=== PATIENT | female | born 1960 | race Two or more races ===

== ENCOUNTER 2022-11-03 10:29 | Emergency (ER) | payer MEDICARE, SELFPAY ==
[2022-11-03 10:45] VITALS: BP 133/62; PULSE 99; RESP 18; TEMP 36.9; O2SAT 99
--- NOTE | 2022-11-03 10:48 | ED.NAVMDI ---
HPI - Nausea/Vomiting/Diarrhea General Chief complaint: Nausea/Vomiting/Diarrhea Stated complaint: Abdominal Pain/Nausea/ Vomiting Source: patient, family and RN notes reviewed History of Present Illness HPI Narrative: 61-year-old female presents to urgent care with us at side. Patient states last night she began vomiting and vomited 6 times. Patient reporting abdominal pain at that time and states that is improving. Patient reports a mild periumbilical pain intermittently this morning. Patient states she attempted drinking some tea this morning and became nauseous. Patient denies any fevers, chills, diarrhea, chest pain, or shortness of breath. Denies any sore throat or ear pain. Some parts of this dictation were generated by voice recognition software and may contain typographical and/or grammatical inaccuracies. Related Data Allergies Allergy/AdvReac Type Severity Reaction Status Date / Time No Known Allergies Allergy Verified 11/03/22 10:54 Review of Systems Review of Systems: Pertinent positives and pertinent negatives per HPI. PMFSH Comments At the time of my signature, I reviewed and agree with the nursing past medical, surgical, social, and family history. There is no relevant family history pertinent to the patient complaint. Exam Narrative: GENERAL: This is a well-nourished, well-developed patient, in no apparent distress. HEAD: normocephalic, atraumatic. EYES: PERRL. Sclera clear/white. Vision is grossly intact. EARS: External ears normal, auditory canals clear and without drainage, TMs normal without perforation. Hearing grossly intact. NOSE: External nose normal with no obvious nasal discharge, nares without redness, no rhinorrhea. THROAT: Mucous membranes moist, posterior pharynx clear. NECK: Neck supple, non-tender without lymphadenopathy, masses or thyromegaly. CARDIOVASCULAR: Regular rate and rhythm without murmurs, gallops, or rubs. RESPIRATORY: Clear to auscultation. Breath sounds equal bilaterally. No wheezes, rales, or rhonchi. GASTROINTESTINAL: Abdomen soft, non-tender, nondistended. Bowel sounds are active. No hepato-splenomegaly, or palpable masses. No guarding. SKIN: warm, intact with no suspicious lesions or rash, good texture and turgor. NEURO: awake, alert, and oriented to person, place and time. There were no obvious focal neurologic abnormalities. Course Course Level of Care: Express Care Visit Vital Signs Vital signs: Vital Signs Temperature 98.5 F 11/03/22 10:45 Pulse Rate 99 11/03/22 10:45 Respiratory Rate 18 11/03/22 10:45 Blood Pressure 133/62 11/03/22 10:45 Pulse Oximetry 99 11/03/22 10:45 Oxygen Delivery Room Air 11/03/22 10:45 Temperature 98.5 F 11/03/22 10:45 Pulse Rate 99 11/03/22 10:45 Respiratory Rate 18 11/03/22 10:45 Blood Pressure 133/62 11/03/22 10:45 Pulse Oximetry 99 11/03/22 10:45 Oxygen Delivery Room Air 11/03/22 10:45 Reviewed MDM - Nausea/Vomiting/Diarrhea MDM Narrative Medical decision making narrative: You've been diagnosed with a viral illness that would not require antibiotics at this time. Take the Zofran ODT at home as directed for nausea and get plenty of fluids. If you would like to eat food, you should follow the BRAT diet (bananas, rice, applesauce, and toast, or things of the like). If you develop any new or worsening symptoms, you should go to the emergency dept without hesitation. 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 Pt passed her PO challenge in clinic. Pt states she is ready to go home. Differential Diagnosis Differential diagnosis: Likely traveler's diarrhea, food poisoning and gastroenteritis Critical Care Time Critical Care Time Critical Care Time: No Discharge Plan Discharge Clinical Impression: Gastroenteritis Patient Disposition: Home, Self-Care Condition: Stable Instructions: Gastroenteritis (DC) Additional Instructions: You've been diagnosed with a vir
[2022-11-03] MEDS: ONDANSETRON HCL ODT 4 MG TABLET PO (11:04)
== END 2022-11-03 11:23 | disposition home or self-care (01) ==
PROVIDERS: Emergency Provider Nurse Practitioner Family
DX: K52.9 Noninfective gastroenteritis and colitis, unspecified (principal)
CPT/HCPCS: 99213; A9270; G0463